=== PATIENT | female | born 1970 | race Caucasian/White ===

== ENCOUNTER → 2018-01-08 07:57 | Outpatient (CLI) | payer MEDICARE, OTHER, SELFPAY ==
[2018-01-08 09:03] LABS: Prograf-FK506 TO CCF/UNIV MAILED SPECIMEN
[2018-01-08 09:15] LABS: Absolute Lymphocyte Count 1.28 X10^3/ul (0.83-4.51); Absolute Neutrophil Count 1.9 X10^3/uL (2.0-7.7); Basophil# 0.07 X10^3/uL; Basophil% 1.7 % (0-1); Eosinophil# 0.33 X10^3/uL; Eosinophils% 8.1 % (0-5); Hematocrit 41.3 % (37-47); Hemoglobin 13.5 g/dl (12.0-15.0); Lymphocyte # 1.28 X10^3/ul (4.0); Lymphocyte % 31.4 % (19-41); Mean Corp Hgb Conc 32.7 g/gl (32-36); Mean Corpuscular Hgb 30.8 pg (27.0-32.0); Mean Corpuscular Volume 94.3 fL (81-99); Mean Platelet Vol. 12.4 fl (6.2-12.0); Monocyte# 0.54 X10^3/uL; Monocyte% 13.2 % (0-10); Neutrophil # 1.85 X10^3/uL (2.7-7.7); Neutrophil % 45.4 % (47-70); Platelet Count 126 K/mm3 (150-450); RBC Distribution Width CV 12.4 % (11.6-14.6); RBC Distribution Width SD 42.4 fl (35.1-43.9); Red Blood Count 4.38 M/mm3 (4.2-5.4); White Blood Count 4.1 K/mm3 (4.4-11.0)
[2018-01-08 09:20] LABS: POSITIVE COUNT NO; POSITIVE DIFFERENTIAL NO; POSITIVE MORPHOLOGY NO
[2018-01-08 09:54] LABS: AST(SGOT) 43 U/L (15-37); Alanine Aminotransfer ALT/SGPT 52 U/L (13-56); Albumin, Serum 3.4 g/dL (3.2-5.0); Alkaline Phosphatase 51 U/L (45-117); Anion Gap 7 (5-15); BUN 13 mg/dL (7-18); BUN/Creat Ratio 15.2 RATIO (10-20); Bilirubin, Direct 0.15 mg/dL (0.00-0.30); Calcium,Total 8.3 mg/dL (8.5-10.1); Chloride 108 mmol/L (98-107); Creatinine, Serum 0.85 mg/dL (0.55-1.02); EST Glomerular Filtration Rate 76 mL/min (>60); Est Glom Filt Rate - Afr Amer 92 mL/min (>60); GGTP 54 U/L (5-55); Globulin 3.8 g/dL (2.2-4.2); Glucose 83 mg/dL (74-106); Potassium 3.8 mmol/L (3.5-5.1); Protein, Total 7.2 g/dL (6.4-8.2); Sodium Level 142 mmol/L (136-145)
== END ==
PROVIDERS: Family Provider Nurse Practitioner; PCP Nurse Practitioner
DX: Z94.4 Liver transplant status (principal)
CPT/HCPCS: 36415; 80048; 80076; 82977; 85025

== ENCOUNTER → 2018-01-28 11:01 | Outpatient (CLI) | payer MEDICARE, OTHER, SELFPAY ==
[2018-01-28 11:45] LABS: Erythrocyte Sedimentation Rate 2 mm/hr (0-20)
[2018-01-31 14:00] LABS: HPV Reflexed? NOT INDICATED
== END ==
PROVIDERS: Family Provider Nurse Practitioner; PCP Nurse Practitioner; Visit Provider Obstetrics & Gynecology
DX: Z12.4 Encounter for screening for malignant neoplasm of cervix (principal); R51 Headache
CPT/HCPCS: 36415; 85652; 88175; G0145

== ENCOUNTER 2018-03-19 08:03 | Outpatient (RCR) | payer OTHER, MEDICARE, SELFPAY ==
[2018-03-06 07:52] LABS: Absolute Lymphocyte Count 1.59 X10^3/ul (0.83-4.51); Absolute Neutrophil Count 2.2 X10^3/uL (2.0-7.7); Basophil# 0.05 X10^3/uL; Basophil% 1.1 % (0-1); Eosinophil# 0.34 X10^3/uL; Eosinophils% 7.2 % (0-5); Hematocrit 42.1 % (37-47); Lymphocyte # 1.59 X10^3/ul (4.0); Lymphocyte % 33.6 % (19-41); Mean Corp Hgb Conc 33.3 g/gl (32-36); Mean Corpuscular Volume 93.3 fL (81-99); Mean Platelet Vol. 11.9 fl (6.2-12.0); Monocyte# 0.55 X10^3/uL; Monocyte% 11.6 % (0-10); Neutrophil % 46.5 % (47-70); Platelet Count 118 K/mm3 (150-450); RBC Distribution Width CV 11.9 % (11.6-14.6); RBC Distribution Width SD 40.3 fl (35.1-43.9); Red Blood Count 4.51 M/mm3 (4.2-5.4); White Blood Count 4.7 K/mm3 (4.4-11.0)
[2018-03-06 08:14] LABS: AST(SGOT) 141 U/L (15-37); Alanine Aminotransfer ALT/SGPT 179 U/L (13-56); Albumin, Serum 3.5 g/dL (3.2-5.0); Alkaline Phosphatase 87 U/L (45-117); Anion Gap 7 (5-15); BUN 17 mg/dL (7-18); BUN/Creat Ratio 16.5 RATIO (10-20); Bilirubin, Direct 0.25 mg/dL (0.00-0.30); Calcium,Total 8.5 mg/dL (8.5-10.1); Chloride 103 mmol/L (98-107); Creatinine, Serum 1.03 mg/dL (0.55-1.02); EST Glomerular Filtration Rate 61 mL/min (>60); Est Glom Filt Rate - Afr Amer 74 mL/min (>60); GGTP 149 U/L (5-55); Glucose 113 mg/dL (74-106); Potassium 3.8 mmol/L (3.5-5.1); Protein, Total 7.5 g/dL (6.4-8.2); Sodium Level 139 mmol/L (136-145)
[2018-03-06 08:19] LABS: POSITIVE COUNT NO; POSITIVE DIFFERENTIAL NO; POSITIVE MORPHOLOGY NO
[2018-03-06 08:23] LABS: Prograf-FK506 TO CCF/UNIV MAILED SPECIMEN
[2018-03-19 09:31] LABS: Absolute Lymphocyte Count 1.39 X10^3/ul (0.83-4.51); Absolute Neutrophil Count 2.3 X10^3/uL (2.0-7.7); Basophil# 0.07 X10^3/uL; Basophil% 1.5 % (0-1); Eosinophil# 0.26 X10^3/uL; Eosinophils% 5.7 % (0-5); Hematocrit 41.3 % (37-47); Lymphocyte # 1.39 X10^3/ul (4.0); Lymphocyte % 30.3 % (19-41); Mean Corp Hgb Conc 33.9 g/gl (32-36); Mean Corpuscular Hgb 31.3 pg (27.0-32.0); Mean Corpuscular Volume 92.4 fL (81-99); Mean Platelet Vol. 12.2 fl (6.2-12.0); Monocyte# 0.58 X10^3/uL; Monocyte% 12.6 % (0-10); Neutrophil # 2.28 X10^3/uL (2.7-7.7); Neutrophil % 49.7 % (47-70); Platelet Count 155 K/mm3 (150-450); RBC Distribution Width CV 12.1 % (11.6-14.6); RBC Distribution Width SD 40.7 fl (35.1-43.9); Red Blood Count 4.47 M/mm3 (4.2-5.4); White Blood Count 4.6 K/mm3 (4.4-11.0)
[2018-03-19 09:32] LABS: POSITIVE COUNT NO; POSITIVE DIFFERENTIAL NO; POSITIVE MORPHOLOGY NO
[2018-03-19 10:01] LABS: AST(SGOT) 118 U/L (15-37); Alanine Aminotransfer ALT/SGPT 132 U/L (13-56); Albumin, Serum 3.2 g/dL (3.2-5.0); Alkaline Phosphatase 71 U/L (45-117); Anion Gap 8 (5-15); BUN 11 mg/dL (7-18); Calcium,Total 8.3 mg/dL (8.5-10.1); Chloride 108 mmol/L (98-107); EST Glomerular Filtration Rate 63 mL/min (>60); Est Glom Filt Rate - Afr Amer 76 mL/min (>60); GGTP 148 U/L (5-55); Globulin 4.2 g/dL (2.2-4.2); Glucose 114 mg/dL (74-106); Potassium 3.8 mmol/L (3.5-5.1); Protein, Total 7.4 g/dL (6.4-8.2); Sodium Level 141 mmol/L (136-145)
[2018-03-28 15:07] LABS: Prograf-FK506 TO CCF/UNIV MAILED SPECIMEN
== END 2018-03-19 09:00 | disposition home or self-care (01) ==
LOC: LAB 08:03
PROVIDERS: Family Provider Nurse Practitioner; PCP Nurse Practitioner
DX: Z94.4 Liver transplant status (principal)
CPT/HCPCS: 36415; 80048; 80076; 80197; 82977; 85025

== ENCOUNTER 2018-03-21 17:48 | Emergency (ER) | payer MEDICARE, OTHER, SELFPAY ==
[2018-03-21 17:53] VITALS: BP 135/89; PULSE 82; RESP 16; TEMP 36.9; O2SAT 98; BMI 25.0
[2018-03-21] MEDS: Ketorolac 30 MG/ML Syringe IV (19:01)
[2018-03-21] MEDS: proMETHazine 25 MG/ML Syringe 12.5 MG IV (19:01)
[2018-03-21] MEDS: 0.9% Normal Saline 1,000 ML 1000 ML IV (19:01)
[2018-03-21] MEDS: DiphenhydrAMINE 50 MG/ML Syringe IV (19:01)
--- NOTE | 2018-03-21 19:06 | ED.DEP ---
ED Disposition - Plan for ED Patient: Disposition: Home or Assisted Living Chief Complaint: Headache Instructions: ED Headache Migraine Referrals: Rosmery Ferrell [Primary Care Provider] - 1-2 Days if not improving Additional Instructions: Plenty of fluids and rest.
[2018-03-21 20:18] VITALS: PULSE 84; RESP 18; O2SAT 98; O2SAT 99
--- NOTE | 2018-03-22 00:17 | ED.DCSUM_ITS ---
- ER Visit Summary Date of Service: 03/22/18 Chief Complaint: Headache with a history of migraines History of Present Illness: The patient is a 48 F history of migraine headaches. Patient states that she awoke today with a headache. Associated nausea and vomiting. No family history of intracranial bleed or aneurysms. She denies any head trauma. No sinus congestion or fever. No neck pain. She is on no blood thinners. She denies any neurological symptoms. Physical Examination: Middle-aged female. Vital signs are stable afebrile. H EENT exam face is atraumatic. Eyes and scalp. Pupils round reactive light. No facial droop. Normal speech. Neck nontender. No meningismus. Able to touch chin to chest. Lungs clear to auscultation bilaterally. Heart regular rate and rhythm no murmur. Abdomen soft nontender. She is moving all 4 extremities. Neurovascular intact. Neurologic exam normal. NIH is 0. GCS of 15. Test Results: None Emergency Department Course and Treatment: Patient was treated with IV fluids, IV Toradol, IV Benadryl and IV Phenergan. Treatment Plan: On repeat exam she is doing well at 1935 feels comfortable being discharged home. Disposition: Discharge Impression: Acute cephalgia with a history of migraines History of liver and renal transplant This note was generated with [employer] dictation software. It may contain incorrect words, spelling, and punctuation that were not noted in review of the chart prior to signing ED Disposition - Plan for ED Patient: Disposition: Home or Assisted Living Chief Complaint: Headache Instructions: ED Headache Migraine Referrals: Rosmery Ferrell [Primary Care Provider] - 1-2 Days if not improving Additional Instructions: Plenty of fluids and rest.
== END 2018-03-21 20:19 | disposition home or self-care (01) ==
PROVIDERS: Emergency Provider Emergency Medicine; Family Provider Nurse Practitioner; PCP Nurse Practitioner
DX: R51 Headache (principal); Z94.4 Liver transplant status; Z94.0 Kidney transplant status; Z79.899 Other long term (current) drug therapy
CPT/HCPCS: 96360; 99283; J7030

== ENCOUNTER 2018-05-06 08:00 | Outpatient (RCR) | payer MEDICARE, OTHER, SELFPAY ==
[2018-05-06 09:03] LABS: Absolute Neutrophil Count 1.6 X10^3/uL (2.0-7.7); Basophil# 0.08 X10^3/uL; Eosinophil# 0.45 X10^3/uL; Eosinophils% 11.2 % (0-5); Hematocrit 42.7 % (37-47); Hemoglobin 13.8 g/dl (12.0-15.0); Lymphocyte % 37.4 % (19-41); Mean Corp Hgb Conc 32.3 g/gl (32-36); Mean Corpuscular Hgb 30.4 pg (27.0-32.0); Mean Corpuscular Volume 94.1 fL (81-99); Mean Platelet Vol. 11.4 fl (6.2-12.0); Monocyte# 0.43 X10^3/uL; Monocyte% 10.7 % (0-10); Neutrophil # 1.55 X10^3/uL (2.7-7.7); Neutrophil % 38.7 % (47-70); POSITIVE COUNT NO; POSITIVE DIFFERENTIAL NO; POSITIVE MORPHOLOGY NO; Platelet Count 129 K/mm3 (150-450); RBC Distribution Width CV 12.1 % (11.6-14.6); RBC Distribution Width SD 40.9 fl (35.1-43.9); Red Blood Count 4.54 M/mm3 (4.2-5.4)
[2018-05-06 09:05] LABS: Prograf-FK506 TO CCF/UNIV MAILED SPECIMEN
[2018-05-06 09:37] LABS: AST(SGOT) 77 U/L (15-37); Alanine Aminotransfer ALT/SGPT 86 U/L (13-56); Albumin, Serum 3.3 g/dL (3.2-5.0); Alkaline Phosphatase 63 U/L (45-117); Anion Gap 5 (5-15); BUN 12 mg/dL (7-18); BUN/Creat Ratio 12.6 RATIO (10-20); Bilirubin, Direct 0.19 mg/dL (0.00-0.30); Calcium,Total 8.5 mg/dL (8.5-10.1); Chloride 107 mmol/L (98-107); Creatinine, Serum 0.95 mg/dL (0.55-1.02); EST Glomerular Filtration Rate 66 mL/min (>60); Est Glom Filt Rate - Afr Amer 80 mL/min (>60); GGTP 115 U/L (5-55); Globulin 4.3 g/dL (2.2-4.2); Glucose 94 mg/dL (74-106); Potassium 3.9 mmol/L (3.5-5.1); Protein, Total 7.6 g/dL (6.4-8.2); Sodium Level 140 mmol/L (136-145)
== END 2018-05-06 09:00 | disposition home or self-care (01) ==
LOC: LAB 08:00
PROVIDERS: Family Provider Nurse Practitioner; PCP Nurse Practitioner
DX: Z94.4 Liver transplant status (principal)
CPT/HCPCS: 36415; 80048; 80076; 82977; 85025

== ENCOUNTER 2018-07-10 07:44 | Outpatient (RCR) | payer OTHER, MEDICARE, SELFPAY ==
[2018-07-10 08:22] LABS: Absolute Lymphocyte Count 1.74 X10^3/ul (0.83-4.51); Absolute Neutrophil Count 1.5 X10^3/uL (2.0-7.7); Basophil# 0.08 X10^3/uL; Basophil% 1.9 % (0-1); Eosinophil# 0.42 X10^3/uL; Eosinophils% 10.1 % (0-5); Hematocrit 38.8 % (37-47); Lymphocyte # 1.74 X10^3/ul (4.0); Lymphocyte % 41.7 % (19-41); Mean Corp Hgb Conc 33.5 g/gl (32-36); Mean Corpuscular Hgb 31.2 pg (27.0-32.0); Monocyte# 0.43 X10^3/uL; Monocyte% 10.3 % (0-10); Platelet Count 134 K/mm3 (150-450); RBC Distribution Width CV 12.6 % (11.6-14.6); RBC Distribution Width SD 42.2 fl (35.1-43.9); Red Blood Count 4.17 M/mm3 (4.2-5.4); White Blood Count 4.2 K/mm3 (4.4-11.0)
[2018-07-10 08:35] LABS: POSITIVE COUNT NO; POSITIVE DIFFERENTIAL NO; POSITIVE MORPHOLOGY NO
[2018-07-10 08:36] LABS: AST(SGOT) 51 U/L (15-37); Alanine Aminotransfer ALT/SGPT 56 U/L (13-56); Albumin, Serum 3.3 g/dL (3.2-5.0); Alkaline Phosphatase 60 U/L (45-117); Anion Gap 9 (5-15); BUN 12 mg/dL (7-18); Calcium,Total 8.7 mg/dL (8.5-10.1); Chloride 108 mmol/L (98-107); Creatinine, Serum 0.92 mg/dL (0.55-1.02); EST Glomerular Filtration Rate 69 mL/min (>60); Est Glom Filt Rate - Afr Amer 83 mL/min (>60); GGTP 70 U/L (5-55); Glucose 112 mg/dL (74-106); Potassium 3.7 mmol/L (3.5-5.1); Protein, Total 7.3 g/dL (6.4-8.2); Sodium Level 143 mmol/L (136-145)
[2018-07-30 15:46] LABS: Prograf-FK506 TO CCF/UNIV MAILED SPECIMEN
== END 2018-07-10 09:00 | disposition home or self-care (01) ==
LOC: LAB 07:44
PROVIDERS: Family Provider Nurse Practitioner; PCP Nurse Practitioner
DX: Z94.4 Liver transplant status (principal)
CPT/HCPCS: 36415; 80048; 80076; 80197; 82977; 85025

== ENCOUNTER 2018-09-07 07:38 | Outpatient (RCR) | payer MEDICARE, OTHER, SELFPAY ==
[2018-09-07 08:42] LABS: Absolute Lymphocyte Count 1.91 X10^3/ul (0.83-4.51); Absolute Neutrophil Count 1.8 X10^3/uL (2.0-7.7); Basophil# 0.05 X10^3/uL; Basophil% 1.1 % (0-1); Eosinophil# 0.21 X10^3/uL; Eosinophils% 4.7 % (0-5); Hematocrit 41.5 % (37-47); Hemoglobin 13.7 g/dl (12.0-15.0); Lymphocyte # 1.91 X10^3/ul (4.0); Lymphocyte % 42.8 % (19-41); Mean Corpuscular Hgb 30.6 pg (27.0-32.0); Mean Corpuscular Volume 92.8 fL (81-99); Mean Platelet Vol. 12.5 fl (6.2-12.0); Monocyte# 0.48 X10^3/uL; Monocyte% 10.8 % (0-10); Neutrophil # 1.81 X10^3/uL (2.7-7.7); Neutrophil % 40.6 % (47-70); Platelet Count 135 K/mm3 (150-450); RBC Distribution Width SD 40.6 fl (35.1-43.9); Red Blood Count 4.47 M/mm3 (4.2-5.4); White Blood Count 4.5 K/mm3 (4.4-11.0)
[2018-09-07 08:43] LABS: POSITIVE COUNT NO; POSITIVE DIFFERENTIAL NO; POSITIVE MORPHOLOGY NO
[2018-09-07 08:45] LABS: Prograf-FK506 TO CCF/UNIV MAILED SPECIMEN
[2018-09-07 09:05] LABS: AST(SGOT) 52 U/L (15-37); Alanine Aminotransfer ALT/SGPT 60 U/L (13-56); Albumin, Serum 3.4 g/dL (3.2-5.0); Alkaline Phosphatase 57 U/L (45-117); Anion Gap 5 (5-15); BUN 16 mg/dL (7-18); BUN/Creat Ratio 16.8 RATIO (10-20); Calcium,Total 8.5 mg/dL (8.5-10.1); Chloride 105 mmol/L (98-107); Creatinine, Serum 0.95 mg/dL (0.55-1.02); EST Glomerular Filtration Rate 66 mL/min (>60); Est Glom Filt Rate - Afr Amer 80 mL/min (>60); GGTP 64 U/L (5-55); Globulin 3.9 g/dL (2.2-4.2); Glucose 86 mg/dL (74-106); Potassium 3.6 mmol/L (3.5-5.1); Protein, Total 7.3 g/dL (6.4-8.2); Sodium Level 139 mmol/L (136-145)
== END 2018-10-04 09:24 | disposition home or self-care (01) ==
LOC: LAB 07:38
PROVIDERS: Family Provider Nurse Practitioner; PCP Nurse Practitioner
DX: Z94.4 Liver transplant status (principal)
CPT/HCPCS: 36415; 80048; 80076; 82977; 85025

== ENCOUNTER 2018-11-18 07:15 | Outpatient (RCR) | payer OTHER, MEDICARE, SELFPAY ==
[2018-10-14 08:47] VITALS: BMI 25.0
[2018-11-18 07:59] LABS: Absolute Lymphocyte Count 1.86 X10^3/ul (0.83-4.51); Absolute Neutrophil Count 1.9 X10^3/uL (2.0-7.7); Basophil# 0.08 X10^3/uL; Basophil% 1.8 % (0-1); Eosinophil# 0.31 X10^3/uL; Eosinophils% 6.9 % (0-5); Hematocrit 44.7 % (37-47); Hemoglobin 14.6 g/dl (12.0-15.0); Lymphocyte # 1.86 X10^3/ul (4.0); Lymphocyte % 41.2 % (19-41); Mean Corp Hgb Conc 32.7 g/gl (32-36); Mean Corpuscular Hgb 30.8 pg (27.0-32.0); Mean Corpuscular Volume 94.3 fL (81-99); Mean Platelet Vol. 12.3 fl (6.2-12.0); Monocyte# 0.38 X10^3/uL; Monocyte% 8.4 % (0-10); Neutrophil # 1.89 X10^3/uL (2.7-7.7); Neutrophil % 41.7 % (47-70); Platelet Count 140 K/mm3 (150-450); RBC Distribution Width CV 12.1 % (11.6-14.6); RBC Distribution Width SD 41.2 fl (35.1-43.9); Red Blood Count 4.74 M/mm3 (4.2-5.4); White Blood Count 4.5 K/mm3 (4.4-11.0)
[2018-11-18 08:02] LABS: POSITIVE COUNT NO; POSITIVE DIFFERENTIAL NO; POSITIVE MORPHOLOGY NO
[2018-11-18 08:23] LABS: Prograf-FK506 TO CCF/UNIV MAILED SPECIMEN
[2018-11-18 08:35] LABS: AST(SGOT) 66 U/L (15-37); Alanine Aminotransfer ALT/SGPT 68 U/L (13-56); Albumin, Serum 3.6 g/dL (3.2-5.0); Alkaline Phosphatase 82 U/L (45-117); Anion Gap 10 (5-15); BUN 19 mg/dL (7-18); BUN/Creat Ratio 18.8 RATIO (10-20); Bilirubin, Direct 0.19 mg/dL (0.00-0.30); Calcium,Total 8.5 mg/dL (8.5-10.1); Chloride 105 mmol/L (98-107); Creatinine, Serum 1.01 mg/dL (0.55-1.02); EST Glomerular Filtration Rate 62 mL/min (>60); Est Glom Filt Rate - Afr Amer 75 mL/min (>60); GGTP 79 U/L (5-55); Glucose 117 mg/dL (74-106); Potassium 3.9 mmol/L (3.5-5.1); Protein, Total 7.6 g/dL (6.4-8.2); Sodium Level 141 mmol/L (136-145)
== END 2018-11-18 08:00 | disposition home or self-care (01) ==
LOC: LAB 07:15
PROVIDERS: Family Provider Nurse Practitioner; PCP Nurse Practitioner
DX: Z94.4 Liver transplant status (principal)
CPT/HCPCS: 36415; 80048; 80076; 82977; 85025

== ENCOUNTER 2019-01-07 07:34 | Outpatient (RCR) | payer MEDICARE, OTHER, SELFPAY ==
[2018-10-14 08:47] VITALS: BMI 25.0
[2019-01-07 08:55] LABS: Absolute Lymphocyte Count 1.55 X10^3/ul (0.83-4.51); Absolute Neutrophil Count 2.1 X10^3/uL (2.0-7.7); Basophil# 0.07 X10^3/uL; Basophil% 1.6 % (0-1); Eosinophil# 0.28 X10^3/uL; Eosinophils% 6.4 % (0-5); Hematocrit 41.7 % (37-47); Hemoglobin 13.4 g/dl (12.0-15.0); Lymphocyte # 1.55 X10^3/ul (4.0); Lymphocyte % 35.5 % (19-41); Mean Corp Hgb Conc 32.1 g/gl (32-36); Mean Corpuscular Hgb 30.5 pg (27.0-32.0); Mean Platelet Vol. 12.6 fl (6.2-12.0); Monocyte# 0.41 X10^3/uL; Monocyte% 9.4 % (0-10); Neutrophil # 2.06 X10^3/uL (2.7-7.7); Neutrophil % 47.1 % (47-70); Platelet Count 140 K/mm3 (150-450); RBC Distribution Width CV 12.8 % (11.6-14.6); RBC Distribution Width SD 43.8 fl (35.1-43.9); Red Blood Count 4.39 M/mm3 (4.2-5.4); White Blood Count 4.4 K/mm3 (4.4-11.0)
[2019-01-07 08:57] LABS: POSITIVE COUNT NO; POSITIVE DIFFERENTIAL NO; POSITIVE MORPHOLOGY NO
[2019-01-07 09:27] LABS: AST(SGOT) 65 U/L (15-37); Alanine Aminotransfer ALT/SGPT 81 U/L (13-56); Albumin, Serum 3.4 g/dL (3.2-5.0); Alkaline Phosphatase 76 U/L (45-117); Anion Gap 11 (5-15); BUN 14 mg/dL (7-18); BUN/Creat Ratio 15.9 RATIO (10-20); Bilirubin, Direct 0.23 mg/dL (0.00-0.30); Calcium,Total 8.4 mg/dL (8.5-10.1); Chloride 106 mmol/L (98-107); Creatinine, Serum 0.88 mg/dL (0.55-1.02); EST Glomerular Filtration Rate 73 mL/min (>60); Est Glom Filt Rate - Afr Amer 88 mL/min (>60); GGTP 82 U/L (5-55); Globulin 3.8 g/dL (2.2-4.2); Glucose 98 mg/dL (74-106); Potassium 3.4 mmol/L (3.5-5.1); Protein, Total 7.2 g/dL (6.4-8.2); Sodium Level 142 mmol/L (136-145)
== END 2019-01-07 08:34 | disposition home or self-care (01) ==
LOC: LAB 07:34
PROVIDERS: Family Provider Nurse Practitioner; PCP Nurse Practitioner
DX: Z94.4 Liver transplant status (principal)
CPT/HCPCS: 36415; 80048; 80076; 82977; 85025

== ENCOUNTER → 2019-02-20 | Outpatient (CLI) | payer MEDICARE, SELFPAY ==
[2018-10-14 08:47] VITALS: BMI 25.0
--- NOTE | 2019-02-20 08:32 | BI_ITS ---
MAMMOGRAPHY - BILATERAL SCREENING REASON FOR EXAM: Female, 49 years old. Routine annual screening examination. PERTINENT HISTORY: Non-contributory. TECHNIQUE: Digital bilateral breast gurinder (3D mammographic acquisition) in the CC and MLO projections. 2-D mediolateral oblique (MLO) and craniocaudad (CC) views of both breasts were obtained. CAD: Full Field Digital Mammography with Computer Added Detection was performed. COMPARISON: Comparison is made with prior study dated October 05, 2017 and October 04, 2016. FINDINGS: Breast Composition: There are scattered areas of fibroglandular density. There are no dominant masses or suspicious calcifications. Stable small left axillary lymph nodes. No other significant abnormalities are identified. There has been no significant change since the prior study. BI/SCREENING MAMM (CAD), BILAT IMPRESSION: Stable bilateral screening mammogram. Yearly follow-up mammogram recommended. (A) ASSESSMENT CATEGORY: BIRADS Category 2: Benign. A letter regarding these results will be sent to the patient by the facility within 30 days. Approximately 10% of breast cancers are not detected by mammography. A normal mammogram should not delay biopsy of a clinically suspicious abnormality. [id number] Electronically Signed: Rajeev Cortez, at 10:16 EDT , Service support ,
== END | disposition home or self-care (01) ==
LOC: OPBI 08:30
PROVIDERS: Family Provider Nurse Practitioner; PCP Nurse Practitioner; Referring Provider Obstetrics & Gynecology; Visit Provider Obstetrics & Gynecology
DX: Z12.31 Encounter for screening mammogram for malignant neoplasm of breast (principal)
CPT/HCPCS: 77063; 77067

== ENCOUNTER 2019-03-11 07:26 | Outpatient (RCR) | payer MEDICARE, OTHER, SELFPAY ==
[2018-10-14 08:47] VITALS: BMI 25.0
[2019-03-11 08:32] LABS: Prograf-FK506 TO CCF/UNIV MAILED SPECIMEN
[2019-03-11 08:37] LABS: Absolute Lymphocyte Count 1.43 X10^3/ul (0.83-4.51); Absolute Neutrophil Count 1.4 X10^3/uL (2.0-7.7); Basophil# 0.08 X10^3/uL; Basophil% 2.3 % (0-1); Eosinophil# 0.32 X10^3/uL; Hematocrit 43.1 % (37-47); Hemoglobin 14.2 g/dl (12.0-15.0); Lymphocyte # 1.43 X10^3/ul (4.0); Lymphocyte % 40.4 % (19-41); Mean Corp Hgb Conc 32.9 g/gl (32-36); Mean Corpuscular Hgb 30.7 pg (27.0-32.0); Mean Corpuscular Volume 93.3 fL (81-99); Monocyte# 0.33 X10^3/uL; Monocyte% 9.3 % (0-10); Neutrophil # 1.38 X10^3/uL (2.7-7.7); Platelet Count 135 K/mm3 (150-450); RBC Distribution Width CV 11.9 % (11.6-14.6); Red Blood Count 4.62 M/mm3 (4.2-5.4); White Blood Count 3.5 K/mm3 (4.4-11.0)
[2019-03-11 08:38] LABS: POSITIVE COUNT NO; POSITIVE DIFFERENTIAL NO; POSITIVE MORPHOLOGY NO
[2019-03-11 08:59] LABS: AST(SGOT) 104 U/L (15-37); Alanine Aminotransfer ALT/SGPT 125 U/L (13-56); Albumin, Serum 3.7 g/dL (3.2-5.0); Alkaline Phosphatase 85 U/L (45-117); Anion Gap 1 (5-15); BUN 19 mg/dL (7-18); BUN/Creat Ratio 21.3 RATIO (10-20); Bilirubin, Direct 0.19 mg/dL (0.00-0.30); Calcium,Total 8.5 mg/dL (8.5-10.1); Chloride 109 mmol/L (98-107); Creatinine, Serum 0.89 mg/dL (0.55-1.02); EST Glomerular Filtration Rate 71 mL/min (>60); Est Glom Filt Rate - Afr Amer 86 mL/min (>60); GGTP 91 U/L (5-55); Glucose 94 mg/dL (74-106); Protein, Total 7.7 g/dL (6.4-8.2); Sodium Level 140 mmol/L (136-145)
== END 2019-03-11 08:26 | disposition home or self-care (01) ==
LOC: LAB 07:26
PROVIDERS: Family Provider Nurse Practitioner; PCP Nurse Practitioner
DX: Z94.4 Liver transplant status (principal)
CPT/HCPCS: 36415; 80048; 80076; 82977; 85025

== ENCOUNTER 2019-04-23 07:05 | Outpatient (RCR) | payer MEDICARE, OTHER, SELFPAY ==
[2018-10-14 08:47] VITALS: BMI 25.0
[2019-04-23 07:36] LABS: Absolute Lymphocyte Count 1.51 X10^3/ul (0.83-4.51); Absolute Neutrophil Count 1.5 X10^3/uL (2.0-7.7); Basophil# 0.08 X10^3/uL; Eosinophil# 0.36 X10^3/uL; Eosinophils% 8.9 % (0-5); Hemoglobin 14.1 g/dl (12.0-15.0); Lymphocyte # 1.51 X10^3/ul (4.0); Lymphocyte % 37.3 % (19-41); Mean Corp Hgb Conc 32.8 g/gl (32-36); Mean Corpuscular Hgb 30.6 pg (27.0-32.0); Mean Corpuscular Volume 93.3 fL (81-99); Mean Platelet Vol. 10.9 fl (6.2-12.0); Monocyte# 0.57 X10^3/uL; Monocyte% 14.1 % (0-10); Neutrophil # 1.52 X10^3/uL (2.7-7.7); Neutrophil % 37.5 % (47-70); Platelet Count 138 K/mm3 (150-450); RBC Distribution Width CV 12.2 % (11.6-14.6); RBC Distribution Width SD 41.1 fl (35.1-43.9); Red Blood Count 4.61 M/mm3 (4.2-5.4); White Blood Count 4.1 K/mm3 (4.4-11.0)
[2019-04-23 07:39] LABS: POSITIVE COUNT NO; POSITIVE DIFFERENTIAL NO; POSITIVE MORPHOLOGY NO
[2019-04-23 08:09] LABS: AST(SGOT) 113 U/L (15-37); Alanine Aminotransfer ALT/SGPT 124 U/L (13-56); Albumin, Serum 3.4 g/dL (3.2-5.0); Alkaline Phosphatase 75 U/L (45-117); Anion Gap 6 (5-15); BUN 20 mg/dL (7-18); BUN/Creat Ratio 21.4 RATIO (10-20); Bilirubin, Direct 0.22 mg/dL (0.00-0.30); Calcium,Total 8.7 mg/dL (8.5-10.1); Chloride 106 mmol/L (98-107); Creatinine, Serum 0.93 mg/dL (0.55-1.02); EST Glomerular Filtration Rate 68 mL/min (>60); Est Glom Filt Rate - Afr Amer 82 mL/min (>60); GGTP 104 U/L (5-55); Globulin 4.3 g/dL (2.2-4.2); Glucose 94 mg/dL (74-106); Potassium 4.3 mmol/L (3.5-5.1); Protein, Total 7.7 g/dL (6.4-8.2); Sodium Level 141 mmol/L (136-145)
[2019-04-23 08:20] LABS: Prograf-FK506 TO CCF/UNIV MAILED SPECIMEN
== END 2019-04-23 08:00 | disposition home or self-care (01) ==
LOC: LAB 07:05
PROVIDERS: Family Provider Nurse Practitioner; PCP Nurse Practitioner
DX: Z94.4 Liver transplant status (principal)
CPT/HCPCS: 36415; 80048; 80076; 82977; 85025

== ENCOUNTER 2019-05-15 07:37 | Outpatient (RCR) | payer MEDICARE, SELFPAY ==
[2018-10-14 08:47] VITALS: BMI 25.0
[2019-05-15 08:37] LABS: Absolute Lymphocyte Count 1.38 X10^3/ul (0.83-4.51); Absolute Neutrophil Count 1.2 X10^3/uL (2.0-7.7); Basophil# 0.04 X10^3/uL; Basophil% 1.2 % (0-1); Eosinophil# 0.23 X10^3/uL; Hemoglobin 13.2 g/dl (12.0-15.0); Lymphocyte # 1.38 X10^3/ul (4.0); Lymphocyte % 41.9 % (19-41); Mean Corpuscular Hgb 30.6 pg (27.0-32.0); Mean Corpuscular Volume 92.6 fL (81-99); Mean Platelet Vol. 11.9 fl (6.2-12.0); Monocyte# 0.47 X10^3/uL; Monocyte% 14.3 % (0-10); Neutrophil # 1.17 X10^3/uL (2.7-7.7); Neutrophil % 35.6 % (47-70); Platelet Count 128 K/mm3 (150-450); RBC Distribution Width CV 12.3 % (11.6-14.6); RBC Distribution Width SD 40.9 fl (35.1-43.9); Red Blood Count 4.32 M/mm3 (4.2-5.4); White Blood Count 3.3 K/mm3 (4.4-11.0)
[2019-05-15 08:41] LABS: Prograf-FK506 TO CCF/UNIV MAILED SPECIMEN
[2019-05-15 08:48] LABS: POSITIVE COUNT NO; POSITIVE DIFFERENTIAL NO; POSITIVE MORPHOLOGY NO
[2019-05-15 08:50] LABS: AST(SGOT) 74 U/L (15-37); Alanine Aminotransfer ALT/SGPT 87 U/L (13-56); Albumin, Serum 3.3 g/dL (3.2-5.0); Alkaline Phosphatase 58 U/L (45-117); Anion Gap 5 (5-15); BUN 16 mg/dL (7-18); BUN/Creat Ratio 18.5 RATIO (10-20); Bilirubin, Direct 0.15 mg/dL (0.00-0.30); Calcium,Total 8.4 mg/dL (8.5-10.1); Chloride 109 mmol/L (98-107); Creatinine, Serum 0.86 mg/dL (0.55-1.02); EST Glomerular Filtration Rate 74 mL/min (>60); Est Glom Filt Rate - Afr Amer 90 mL/min (>60); GGTP 75 U/L (5-55); Globulin 4.1 g/dL (2.2-4.2); Glucose 94 mg/dL (74-106); Potassium 4.1 mmol/L (3.5-5.1); Protein, Total 7.4 g/dL (6.4-8.2); Sodium Level 141 mmol/L (136-145)
== END 2019-05-15 16:21 ==
LOC: LAB 07:37
PROVIDERS: Family Provider Nurse Practitioner; PCP Nurse Practitioner
DX: Z94.4 Liver transplant status (principal)
CPT/HCPCS: 36415; 80048; 80076; 82977; 85025

== ENCOUNTER 2019-07-11 07:39 | Outpatient (RCR) | payer MEDICARE, OTHER, SELFPAY ==
[2018-10-14 08:47] VITALS: BMI 25.0
[2019-07-11 08:28] LABS: Absolute Lymphocyte Count 1.99 X10^3/uL (0.83-4.51); Absolute Neutrophil Count 1.7 X10^3/uL (2.0-7.7); Basophil# 0.08 X10^3/uL; Basophil% 1.8 % (0-1); Eosinophil# 0.33 X10^3/uL; Eosinophils% 7.2 % (0-5); Hematocrit 43.8 % (37-47); Hemoglobin 14.6 g/dL (12.0-15.0); Lymphocyte # 1.99 X10^3/ul (4.0); Lymphocyte % 43.5 % (19-41); Mean Corp Hgb Conc 33.3 g/dL (32-36); Mean Corpuscular Hgb 31.5 pg (27.0-32.0); Mean Corpuscular Volume 94.4 fL (81-99); Mean Platelet Vol. 12.1 fl (6.2-12.0); Monocyte# 0.49 X10^3/uL; Monocyte% 10.7 % (0-10); NRBC Flagged by Analyzer 0 % (0-5); Neutrophil # 1.67 X10^3/uL (2.7-7.7); Neutrophil % 36.6 % (47-70); Platelet Count 135 K/mm3 (150-450); RBC Distribution Width CV 11.7 % (11.6-14.6); RBC Distribution Width SD 40.5 fl (35.1-43.9); Red Blood Count 4.64 M/mm3 (4.2-5.4); White Blood Count 4.6 K/mm3 (4.4-11.0)
[2019-07-11 08:45] LABS: Prograf-FK506 TO CCF/UNIV MAILED SPECIMEN
[2019-07-11 09:02] LABS: AST(SGOT) 62 U/L (15-37); Alanine Aminotransfer ALT/SGPT 69 U/L (13-56); Albumin, Serum 3.4 g/dL (3.2-5.0); Alkaline Phosphatase 69 U/L (45-117); Anion Gap 7 (5-15); BUN 13 mg/dL (7-18); BUN/Creat Ratio 13.5 RATIO (10-20); Bilirubin, Direct 0.19 mg/dL (0.00-0.30); Calcium,Total 8.5 mg/dL (8.5-10.1); Chloride 107 mmol/L (98-107); Creatinine, Serum 0.97 mg/dL (0.55-1.02); EST Glomerular Filtration Rate 65 mL/min (>60); Est Glom Filt Rate - Afr Amer 79 mL/min (>60); GGTP 59 U/L (5-55); Globulin 4.2 g/dL (2.2-4.2); Glucose 89 mg/dL (74-106); Potassium 4.3 mmol/L (3.5-5.1); Protein, Total 7.6 g/dL (6.4-8.2); Sodium Level 142 mmol/L (136-145)
== END 2019-07-11 11:00 | disposition home or self-care (01) ==
LOC: LAB 07:39
PROVIDERS: Family Provider Nurse Practitioner; PCP Nurse Practitioner
DX: Z94.4 Liver transplant status (principal)
CPT/HCPCS: 36415; 80048; 80076; 82977; 85025

== ENCOUNTER 2019-09-19 07:08 | Outpatient (RCR) | payer MEDICARE, OTHER, SELFPAY ==
[2018-10-14 08:47] VITALS: BMI 25.0
[2019-09-19 08:02] LABS: Absolute Lymphocyte Count 2.12 X10^3/uL (0.83-4.51); Basophil# 0.07 X10^3/uL; Basophil% 1.4 % (0-1); Eosinophil# 0.32 X10^3/uL; Eosinophils% 6.3 % (0-5); Hematocrit 45.8 % (37-47); Lymphocyte # 2.12 X10^3/ul (4.0); Lymphocyte % 41.7 % (19-41); Mean Corp Hgb Conc 32.8 g/dL (32-36); Mean Corpuscular Hgb 31.1 pg (27.0-32.0); Mean Corpuscular Volume 94.8 fL (81-99); Mean Platelet Vol. 12.1 fl (6.2-12.0); Monocyte# 0.59 X10^3/uL; Monocyte% 11.6 % (0-10); NRBC Flagged by Analyzer 0 % (0-5); Neutrophil # 1.97 X10^3/uL (2.7-7.7); Neutrophil % 38.8 % (47-70); Platelet Count 136 K/mm3 (150-450); RBC Distribution Width CV 11.9 % (11.6-14.6); RBC Distribution Width SD 40.7 fl (35.1-43.9); Red Blood Count 4.83 M/mm3 (4.2-5.4); White Blood Count 5.1 K/mm3 (4.4-11.0)
[2019-09-19 08:15] LABS: Prograf-FK506 TO CCF/UNIV MAILED SPECIMEN
[2019-09-19 08:28] LABS: AST(SGOT) 56 U/L (15-37); Alanine Aminotransfer ALT/SGPT 67 U/L (13-56); Albumin, Serum 3.5 g/dL (3.2-5.0); Alkaline Phosphatase 76 U/L (45-117); Anion Gap 6 (5-15); BUN 21 mg/dL (7-18); BUN/Creat Ratio 20.6 RATIO (10-20); Calcium,Total 8.7 mg/dL (8.5-10.1); Chloride 105 mmol/L (98-107); Creatinine, Serum 1.02 mg/dL (0.55-1.02); EST Glomerular Filtration Rate 61 mL/min (>60); Est Glom Filt Rate - Afr Amer 74 mL/min (>60); GGTP 65 U/L (5-55); Globulin 4.3 g/dL (2.2-4.2); Glucose 86 mg/dL (74-106); Potassium 3.8 mmol/L (3.5-5.1); Protein, Total 7.8 g/dL (6.4-8.2); Sodium Level 141 mmol/L (136-145)
== END 2019-09-19 18:00 | disposition home or self-care (01) ==
LOC: LAB 07:08
PROVIDERS: Family Provider Nurse Practitioner; PCP Nurse Practitioner
DX: Z94.4 Liver transplant status (principal)
CPT/HCPCS: 36415; 80048; 80076; 82977; 85025

== ENCOUNTER 2019-11-13 07:40 | Outpatient (RCR) | payer MEDICARE, OTHER, SELFPAY ==
[2018-10-14 08:47] VITALS: BMI 25.0
[2019-11-13 08:27] LABS: Absolute Lymphocyte Count 2.39 X10^3/uL (0.83-4.51); Absolute Neutrophil Count 1.6 X10^3/uL (2.0-7.7); Basophil# 0.04 X10^3/uL; Basophil% 0.9 % (0-1); Eosinophil# 0.18 X10^3/uL; Eosinophils% 3.9 % (0-5); Hematocrit 41.9 % (37-47); Lymphocyte # 2.39 X10^3/ul (4.0); Lymphocyte % 52.1 % (19-41); Mean Corp Hgb Conc 33.4 g/dL (32-36); Mean Corpuscular Hgb 30.8 pg (27.0-32.0); Mean Corpuscular Volume 92.3 fL (81-99); Mean Platelet Vol. 11.8 fl (6.2-12.0); Monocyte# 0.41 X10^3/uL; Monocyte% 8.9 % (0-10); NRBC Flagged by Analyzer 0 % (0-5); Neutrophil # 1.57 X10^3/uL (2.7-7.7); Neutrophil % 34.2 % (47-70); Platelet Count 148 K/mm3 (150-450); RBC Distribution Width CV 11.7 % (11.6-14.6); RBC Distribution Width SD 39.2 fl (35.1-43.9); Red Blood Count 4.54 M/mm3 (4.2-5.4); White Blood Count 4.6 K/mm3 (4.4-11.0)
[2019-11-13 08:36] LABS: AST(SGOT) 41 U/L (15-37); Alanine Aminotransfer ALT/SGPT 51 U/L (13-56); Albumin, Serum 3.6 g/dL (3.2-5.0); Alkaline Phosphatase 71 U/L (45-117); Anion Gap 4 (5-15); BUN 16 mg/dL (7-18); BUN/Creat Ratio 15.4 RATIO (10-20); Calcium,Total 9.1 mg/dL (8.5-10.1); Chloride 107 mmol/L (98-107); Creatinine, Serum 1.04 mg/dL (0.55-1.02); EST Glomerular Filtration Rate 60 mL/min (>60); Est Glom Filt Rate - Afr Amer 72 mL/min (>60); GGTP 56 U/L (5-55); Globulin 3.9 g/dL (2.2-4.2); Glucose 109 mg/dL (74-106); Potassium 3.9 mmol/L (3.5-5.1); Protein, Total 7.5 g/dL (6.4-8.2); Sodium Level 141 mmol/L (136-145)
[2019-11-13 08:49] LABS: Prograf-FK506 TO CCF/UNIV MAILED SPECIMEN
== END 2019-11-13 18:00 | disposition home or self-care (01) ==
LOC: LAB 07:40
PROVIDERS: Family Provider Nurse Practitioner; PCP Nurse Practitioner
DX: Z94.4 Liver transplant status (principal)
CPT/HCPCS: 36415; 80048; 80076; 82977; 85025

== ENCOUNTER 2020-01-17 07:10 | Outpatient (RCR) | payer MEDICARE, OTHER, SELFPAY ==
[2018-10-14 08:47] VITALS: BMI 25.0
[2020-01-17 08:14] LABS: Prograf-FK506 TO CCF/UNIV MAILED SPECIMEN
[2020-01-17 08:20] LABS: Absolute Lymphocyte Count 2.38 X10^3/uL (0.83-4.51); Absolute Neutrophil Count 1.5 X10^3/uL (2.0-7.7); Basophil# 0.05 X10^3/uL; Basophil% 1.1 % (0-1); Eosinophils% 6.4 % (0-5); Hematocrit 38.7 % (37-47); Lymphocyte # 2.38 X10^3/ul (4.0); Lymphocyte % 50.4 % (19-41); Mean Corp Hgb Conc 33.6 g/dL (32-36); Mean Corpuscular Hgb 30.7 pg (27.0-32.0); Mean Corpuscular Volume 91.3 fL (81-99); Monocyte# 0.48 X10^3/uL; Monocyte% 10.2 % (0-10); NRBC Flagged by Analyzer 0 % (0-5); Neutrophil # 1.51 X10^3/uL (2.7-7.7); Neutrophil % 31.9 % (47-70); Platelet Count 115 K/mm3 (150-450); RBC Distribution Width CV 12.3 % (11.6-14.6); RBC Distribution Width SD 40.6 fl (35.1-43.9); Red Blood Count 4.24 M/mm3 (4.2-5.4); White Blood Count 4.7 K/mm3 (4.4-11.0)
[2020-01-17 08:51] LABS: AST(SGOT) 42 U/L (15-37); Alanine Aminotransfer ALT/SGPT 46 U/L (13-56); Albumin, Serum 3.5 g/dL (3.2-5.0); Alkaline Phosphatase 67 U/L (45-117); Anion Gap 5 (5-15); BUN 21 mg/dL (7-18); BUN/Creat Ratio 21.2 RATIO (10-20); Bilirubin, Direct 0.16 mg/dL (0.00-0.30); Calcium,Total 8.7 mg/dL (8.5-10.1); Chloride 109 mmol/L (98-107); Creatinine, Serum 0.99 mg/dL (0.55-1.02); EST Glomerular Filtration Rate 63 mL/min (>60); Est Glom Filt Rate - Afr Amer 76 mL/min (>60); GGTP 40 U/L (5-55); Globulin 3.5 g/dL (2.2-4.2); Glucose 98 mg/dL (74-106); Potassium 3.7 mmol/L (3.5-5.1); Sodium Level 142 mmol/L (136-145)
== END 2020-01-17 18:00 | disposition home or self-care (01) ==
LOC: LAB 07:10
PROVIDERS: Family Provider Nurse Practitioner; PCP Nurse Practitioner
DX: Z94.4 Liver transplant status (principal)
CPT/HCPCS: 36415; 80048; 80076; 82977; 85025

== ENCOUNTER → 2020-03-10 | Outpatient (CLI) | payer MEDICARE, OTHER, SELFPAY ==
[2018-10-14 08:47] VITALS: BMI 25.0
[2020-03-13 03:06] LABS: Age Gdln ACOG Testing 30-65 (.)
[2020-03-13 03:24] LABS: HPV APTIMA, High Risk Negative (Negative)
[2020-03-15 16:15] LABS: HPV Reflexed? YES, CHARGE PATIENT
== END | disposition home or self-care (01) ==
LOC: LABSPEC 13:34
PROVIDERS: PCP Nurse Practitioner; Referring Provider Obstetrics & Gynecology; Visit Provider Obstetrics & Gynecology
DX: Z12.4 Encounter for screening for malignant neoplasm of cervix (principal)
CPT/HCPCS: 87624; 88175; G0145

== ENCOUNTER → 2020-03-16 | Outpatient (CLI) | payer MEDICARE, OTHER, SELFPAY ==
[2018-10-14 08:47] VITALS: BMI 25.0
--- NOTE | 2020-03-16 10:32 | BI_ITS ---
MAMMOGRAPHY - BILATERAL SCREENING REASON FOR EXAM: Female, 50 years old. Routine annual screening examination. PERTINENT HISTORY: Non-contributory. TECHNIQUE: Digital bilateral breast dalia (3D mammographic acquisition) in the CC and MLO projections. 2-D mediolateral oblique (MLO) and craniocaudad (CC) views of both breasts were obtained. CAD: Full Field Digital Mammography with Computer Added Detection was performed. COMPARISON: Comparison is made with prior examination dated February 20, 2019 and October 05, 2017. FINDINGS: Breast Composition: There are scattered areas of fibroglandular density. There are no dominant masses or suspicious calcifications. No other significant abnormalities are identified. There has been no significant change since the prior study. BI/SCREEN MAMM (CAD) W/DALIA BILAT IMPRESSION: Stable bilateral screening mammogram. Yearly follow-up mammogram recommended. (A) ASSESSMENT CATEGORY: BIRADS Category 1: Negative. A letter regarding these results will be sent to the patient by the facility within 30 days. Approximately 10% of breast cancers are not detected by mammography. A normal mammogram should not delay biopsy of a clinically suspicious abnormality. [id number] Electronically Signed: Rajeev Cortez, at 11:14 EDT , Service support ,
== END | disposition home or self-care (01) ==
LOC: OPBI 10:30
PROVIDERS: PCP Nurse Practitioner; Referring Provider Obstetrics & Gynecology; Visit Provider Obstetrics & Gynecology
DX: Z12.31 Encounter for screening mammogram for malignant neoplasm of breast (principal)
CPT/HCPCS: 77063; 77067

== ENCOUNTER 2020-04-10 06:55 | Outpatient (RCR) | payer MEDICARE, OTHER, SELFPAY ==
[2018-10-14 08:47] VITALS: BMI 25.0
[2020-04-10 08:00] LABS: Absolute Lymphocyte Count 1.87 X10^3/uL (0.83-4.51); Absolute Neutrophil Count 1.6 X10^3/uL (2.0-7.7); Basophil# 0.06 X10^3/uL; Basophil% 1.4 % (0-1); Eosinophil# 0.22 X10^3/uL; Eosinophils% 5.2 % (0-5); Hemoglobin 13.9 g/dL (12.0-15.0); Lymphocyte # 1.87 X10^3/ul (4.0); Lymphocyte % 43.9 % (19-41); Mean Corp Hgb Conc 33.1 g/dL (32-36); Mean Corpuscular Hgb 31.1 pg (27.0-32.0); Mean Platelet Vol. 11.5 fl (6.2-12.0); Monocyte# 0.47 X10^3/uL; NRBC Flagged by Analyzer 0 % (0-5); Neutrophil # 1.64 X10^3/uL (2.7-7.7); Neutrophil % 38.5 % (47-70); Platelet Count 130 K/mm3 (150-450); RBC Distribution Width CV 11.6 % (11.6-14.6); RBC Distribution Width SD 39.2 fl (35.1-43.9); Red Blood Count 4.47 M/mm3 (4.2-5.4); White Blood Count 4.3 K/mm3 (4.4-11.0)
[2020-04-10 08:18] LABS: AST(SGOT) 40 U/L (15-37); Alanine Aminotransfer ALT/SGPT 45 U/L (13-56); Albumin, Serum 3.7 g/dL (3.2-5.0); Alkaline Phosphatase 65 U/L (45-117); Anion Gap 7 (5-15); BUN 21 mg/dL (7-18); BUN/Creat Ratio 20.2 RATIO (10-20); Bilirubin, Direct 0.19 mg/dL (0.00-0.30); Calcium,Total 8.9 mg/dL (8.5-10.1); Chloride 107 mmol/L (98-107); Creatinine, Serum 1.04 mg/dL (0.55-1.02); EST Glomerular Filtration Rate 60 mL/min (>60); Est Glom Filt Rate - Afr Amer 72 mL/min (>60); GGTP 44 U/L (5-55); Globulin 3.8 g/dL (2.2-4.2); Glucose 93 mg/dL (74-106); Protein, Total 7.5 g/dL (6.4-8.2); Sodium Level 142 mmol/L (136-145)
[2020-04-10 08:26] LABS: Prograf-FK506 TO CCF/UNIV MAILED SPECIMEN
[2020-04-12 09:41] LABS: Vitamin D,25 Hydroxy 54.6 ng/mL
== END 2020-04-10 18:00 | disposition home or self-care (01) ==
LOC: LAB 06:55
PROVIDERS: Family Provider Nurse Practitioner; PCP Nurse Practitioner
DX: Z94.4 Liver transplant status (principal); E55.9 Vitamin D deficiency, unspecified
CPT/HCPCS: 36415; 80048; 80076; 82306; 82977; 85025

== ENCOUNTER 2020-10-23 18:48 | Emergency (ER) | payer MEDICARE, OTHER, SELFPAY ==
[2018-10-14 08:47] VITALS: BMI 25.0
[2020-10-23 18:49] VITALS: BP 158/91; PULSE 91; RESP 18; TEMP 36.6; O2SAT 98; BMI 26.1
--- NOTE | 2020-10-23 19:03 | ED.VISSUMM ---
- ER Visit Summary Date of Service: 10/23/20 Chief Complaint: [Cat bite] History of Present Illness: The patient is a 50 F [presents to the emergency department with a cat bite to the right ankle that occurred yesterday approximately 4:30 AM. Patient states that there was another cat at their window and her cat got agitated and bit her on the right ankle. Cat is known and is immunized. Patient unsure of her last tetanus shot. Patient noticed increased swelling and redness today. She denies any fevers. Patient does have history of prior liver and kidney transplant due to cirrhosis of the liver.] Physical Examination: [HEENT-PERRLA, EOMI. Cranial nerves II through XII grossly intact. TMs clear. Mucous membranes moist. No adenopathy. Cardiovascular-regular rate and rhythm without murmur or ectopy Lungs-clear to auscultation, chest wall stable without crepitus or subcu emphysema Abdomen-normoactive bowel sounds, soft, nontender, no rebound or rigidity, no peritoneal signs. Extremities-intact ?4, normal range of motion, normal pulses. Right ankle-patient does have soft tissue swelling over the lateral malleolus and lateral aspect of the ankle with surrounding erythema. She is got a small puncture wound over the lateral malleolus. Lymphangitic streaking noted. She is neurovascular intact distally.] Test Results: [None indicated] Emergency Department Course and Treatment: [Patient was started on clindamycin and doxycycline given that she has a allergy to Augmentin. Patient does not know what the allergy to Augmentin is.] Treatment Plan: [Patient will be treated with clindamycin and doxycycline. Patient advised to follow-up with primary care physician in 2 to 3 days for wound check. She is to return if increasing pain, redness, fever, or condition should worsen anyway.] Disposition: [Discharged home in stable condition] Impression: [Infected cat bite right ankle Cellulitis right ankle] This note was generated with [employer] dictation software. It may contain incorrect words, spelling, and punctuation that were not noted in review of the chart prior to signing ED Disposition - Plan for ED Patient: Referrals: Rosmery Ferrell SECURITY PROJECT MANAGER, SECURITY PROJECT MANAGER-C [Primary Care Provider] -
--- NOTE | 2020-10-23 19:05 | ED.DEP ---
ED Disposition - Plan for ED Patient: Instructions: ED Cat Bite Prescriptions: Clindamycin HCl [Cleocin] 300 mg PO Q6H #40 cap Prescription Printed Doxycycline 100 mg PO BID #20 cap Prescription Printed Referrals: Rosmery Ferrell NP, HEARING INSTRUMENT SPECIALIST-C [Primary Care Provider] - 2 Days
[2020-10-23] MEDS: Clindamycin HCl 150 MG Capsule 300 MG PO (19:11)
[2020-10-23] MEDS: Doxycycline 100 MG CAPSULE PO (19:12)
[2020-10-23] MEDS: Diphth,Pertuss(Acell),Tet Vac 0.5 ML Vial IM (19:12)
[2020-10-23 19:17] VITALS: RESP 16
== END 2020-10-23 19:31 | disposition home or self-care (01) ==
LOC: ED 19:14
PROVIDERS: Emergency Provider Emergency Medicine; PCP Nurse Practitioner
DX: S91.051A Open bite, right ankle, initial encounter (principal); L03.115 Cellulitis of right lower limb; Z94.0 Kidney transplant status; Z94.4 Liver transplant status; W55.01XA Bitten by cat, initial encounter; Y93.89 Activity, other specified; Y92.009 Unspecified place in unspecified non-institutional (private) residence as the place of occurrence of the external cause; Y99.8 Other external cause status
CPT/HCPCS: 90471; 90715; 99283

== ENCOUNTER → 2021-03-21 10:06 | Outpatient (CLI) | payer MEDICARE, OTHER, SELFPAY ==
--- NOTE | 2021-03-21 10:09 | BI_ITS ---
MAMMOGRAPHY - BILATERAL SCREENING 3-D TOMOSYNTHESIS REASON FOR EXAM: Female, 51 years old. Routine screening PERTINENT HISTORY: No significant family history. TECHNIQUE: 2-D mammograms and 3-D Tomosynthesis of the breast (s) were performed. CAD was performed. COMPARISON: 03/16/2020 FINDINGS: The breast composition is composed of scattered fibroglandular density. Scattered benign calcifications are seen. No dense spiculated masses or suspicious microcalcifications are identified. No architectural distortion is identified. There is no skin thickening or retraction. There has been no significant change since the prior study. BI/SCRN MAMM (CAD)W/DALIA BILAT IMPRESSION: No mammographic signs of malignancy. Routine yearly mammograms recommended. ASSESSMENT CATEGORY: BIRADS Category 1: Negative. A letter regarding these results will be sent to the patient by the facility within 30 days. FOLLOW UP RECOMMENDATION: Yearly follow up mammogram recommended. (A) Approximately 10% of breast cancers are not detected by mammography. A normal mammogram should not delay biopsy of a clinically suspicious abnormality. Electronically Signed: Victor Hugo Hunter MD at 11:22 EDT , Service support ,
== END ==
PROVIDERS: PCP Nurse Practitioner; Referring Provider Student in an Organized Health Care Education/Training Program; Visit Provider Student in an Organized Health Care Education/Training Program
DX: Z12.31 Encounter for screening mammogram for malignant neoplasm of breast (principal)
CPT/HCPCS: 77063; 77067

== ENCOUNTER → 2022-05-01 | Outpatient (CLI) | payer MEDICARE, OTHER, SELFPAY ==
--- NOTE | 2022-05-01 12:17 | BI_ITS ---
MAMMOGRAPHY - BILATERAL SCREENING REASON FOR EXAM: Female, 52 years old. Routine annual screening examination. PERTINENT HISTORY: Aunt with breast cancer. TECHNIQUE: Digital bilateral breast dalia (3D mammographic acquisition) in the CC and MLO projections. 2-D mediolateral oblique (MLO) and craniocaudad (CC) views of both breasts were obtained. CAD: Full Field Digital Mammography with Computer Added Detection was performed. COMPARISON: Comparison is made with prior study of 03/21/2021 and 03/16/2020. FINDINGS: Breast Composition: There are scattered areas of fibroglandular density. There are no dominant masses or suspicious calcifications. No other significant abnormalities are identified. There has been no significant change since the prior study. BI/SCRN MAMM (CAD)W/DALIA BILAT IMPRESSION: Stable bilateral screening mammogram. Yearly follow-up mammogram recommended. (A) ASSESSMENT CATEGORY: BIRADS Category 1: Negative. A letter regarding these results will be sent to the patient by the facility within 30 days. Approximately 10% of breast cancers are not detected by mammography. A normal mammogram should not delay biopsy of a clinically suspicious abnormality. [id number] Electronically Signed: Rajeev Cortez MD at 14:03 EDT ,
== END | disposition home or self-care (01) ==
LOC: OPBI 12:15
PROVIDERS: PCP Nurse Practitioner Family; Visit Provider Obstetrics & Gynecology
DX: Z12.31 Encounter for screening mammogram for malignant neoplasm of breast (principal)
CPT/HCPCS: 77063; 77067

== ENCOUNTER 2022-09-11 06:43 | Day surgery (SDC) | payer MEDICARE, OTHER, SELFPAY ==
[2022-09-11] VITALS (7 sets, daily range): BP systolic 117–133; BP diastolic 78–91; PULSE 66–88; RESP 16–18; TEMP 36.3–36.5; O2SAT 97–100; BMI 25.4
--- NOTE | 2022-09-11 | COLBX_PTH ---
PATIENT: NEAL BARBOUR LOC: EN U#:[id number] AGE/SX: 52/F ROOM: RE09/11/[address]: Dr. Jazmin Ramires MD : 1970 BED: DIS: 09/11/2022 SPEC #: [id number] RECD: 09/11/22 12:53 STATUS: NATE RECarlos A #: [id number] JOSÉ LUIS: 09/11/22 00:[address]: Jazmin Ramires DEPT: SURGICAL PATHOLOGY RECD BY: Jacinto Tovar ENTERED: 09/11/22 12:58 SP TYPE: COLON BX OTHR DR: Simin Kratf, CARD FEEDER-C Tissues: A - Ileum, NOS B - Ascending colon Procedures: Surgery Specimen Level IV HEADER OPERATION: Colonoscopy with biopsy and polypectomy ? open access (MAC) PRE-OP DIAGNOSIS: Screening TISSUE SUBMITTED: A ? Ileocecal valve biopsy, B ? Ascending colon polyp MICROSCOPIC DIAGNOSIS A. Ileocecal valve, biopsy: Minimal changes consistent with tubular adenoma. B. Ascending colon polyp, polypectomy: Tubular adenoma. SJ:maciel 09/12/2022 MICROSCOPIC DESCRIPTION Slides are reviewed. GROSS DESCRIPTION A - Received in fixative is one container labeled with the patient's name and designated ileocecal valve biopsy. The specimen consists of two irregular fragments of light bond soft tissue that in aggregate measure 0.3 x 0.2 x 0.1 cm. The specimen is totally submitted in one cassette. B - Received in fixative is one container labeled with the patient's name and designated ascending colon. The specimen consists of two irregular fragments of light bond soft tissue that in aggregate measure 0.5 x 0.3 x 0.1 cm. The specimen is totally submitted in one cassette. / AM:maciel 09/11/2022 TC:5 CPT: 48652 x2
[2022-09-11] MEDS: Lactated Ringers 1,000 ML 15 ML IV (07:25)
--- NOTE | 2022-09-11 07:25 | H&P.OPEN ---
[facility] - General General Date of Admission: 09/11/22 HPI Narrative NEAL BARBOUR, is a 52 F who presents for screening colonoscopy. Patient never had previous colonoscopy. Patient denies any family history of Colon cancer. Patient has bowel movements every 2 to 3 days denies any blood. Patient did have past medical history for liver and kidney transplant 2006?patient is currently doing well from that aspect. [facility] Medical History (Updated 09/11/22 @ 07:[address] Jazmin Ramires MD) Hemorrhoids History of cirrhosis of liver History of echocardiogram History of steroid therapy Migraine Non-smoker Post-menopausal Home Medications biotin 800 mcg tablet 1,000 mcg PO DAILY 03/07/14 [History Last Taken Unknown] fexofenadine 60 mg-pseudoephedrine ER 120 mg tablet,ext.release,12 hr 180 mg PO DAILY PRN Allergies 03/07/14 [History Last Taken Unknown] mycophenolate mofetil 250 mg capsule 250 mg PO BID 03/07/14 [History Last Taken Unknown] erenumab-aooe 70 mg/mL subcutaneous auto-injector ([employer]ig Autoinjector 140 mg/2 Pack () 140 mg subcut QMONTH 10/14/18 [History Last Taken Unknown] prednisone 1 mg tablet 2 mg PO QMWF 10/14/18 [History Last Taken Unknown] tacrolimus 1 mg capsule, immediate-release (Prograf) 3 mg PO BID 10/14/18 [History Last Taken Unknown] Allergy/AdvReac Type Severity Reaction Status Date / Time amoxicillin trihydrate Allergy Unknown Verified 09/11/22 07:11 [From Augmentin] codeine Allergy Rash Verified 09/11/22 07:11 potassium clavulanate Allergy Unknown Verified 09/11/22 07:11 [From Augmentin] Family History Grandmother Diabetes Heart disease Skin cancer Mother Hypertension Surgical History (Updated 09/06/22 @ 12:24 by Kathrine Caballero) history left kidney transplant (~2006) History of laparoscopic cholecystectomy History of liver transplant (~2006) History of nasal surgery History of open heart surgery (~1976) History of tonsillectomy History of tubal ligation Social History Smoking Status: Never smoker alcohol intake: current substance use type: does not use Past Medical/Surgical History Planned Operation Planned Operative Procedure/s: CSCOPE Previous Hospitalizations/Surgeries HX Hospitalizations: No Any Problems With Anesthesia: No You/Your Family Experience Fever (Hyperthermia) With Anes: No Cholinesterase deficiency: No Cardiovascular Hx of Irregular Heartbeat and/or Afib: No Hx Heart Attack: No Hx Congestive Heart Failure: No Hx Rheumatic Fever: No Hx Hypertension: No Hx Internal Defibrillator: No Hx Pacemaker: No Hx Pain in Legs when Walking/Leg Cramps: No Respiratory HX of Shortness of Breath: No Hx Chronic Obstructive Pulmonary Disease (COPD): No Hx Asthma: No Hx Emphysema: No Hx Sleep Apnea: No Hx Respiratory Tract Infection/Cold (presently): No Do You Snore Loudly (louder than talking or can be heard): Yes Do You Often Feel Tired/ Fatigued/ Sleepy Dring Daytime?: No Has Anyone Observed You Stop Breathing During Sleep?: No Result (for STOP score): Negative Smoking Status: Never smoker Gastrointestinal Hx Gastroesophageal Reflux: No Hx Gastrointestinal Bleed: No Hx Ulcer: No Special diet followed at home: No Neurological Hx Seizures: No Hx Multiple Sclerosis: No Hx Parkinson's Disease: No Hx Head/Neck Injury: No Hx Headaches: Yes Hx Back Injury/Pain: No Does patient have nerve stimulator: No Blood Disorder Hx Hepatitis: No Hx Cirrhosis: Yes Hx Anemia: No Reproduction : No Is Patient Lactating: No Genitourinary Hx Renal Disease: Yes Hx Dialysis: No Musculoskeletal Hx Arthritis: No Hx Gout: No Endocrine Hx Diabetes: No Thyroid Disease: No Psycho/Social Hx Anxiety: No Hx Depression: No Hx Dementia: No Miscellaneous Hx Cancer: No Recent Exposure to Contagious Disease: No Allergies amoxicillin trihydrate [From Augmentin] Allergy (Verified 09/11/22 07:11) Unknown codeine Allergy (Verified 09/11/22 07:11) Rash potassium clavulanate [From Augmentin] Allergy (Verified 09/11/22 07:11) Unknown Discharge Is Pt Admitted From a [facility], or a Snf: No After D/C, Where Do you Plan to Go: Return Home Vital Signs Vital Signs Vital Signs: 09/11/22 07:12 09/11/22 07:13 Temperature 97.7 F L Temperature Source Temporal Pulse Rate 72 Respiratory Rate 18 Respiratory Pattern Normal Blood Pressure 126/78 H Blood Pressure Mean 94 Blood Pressure Source Monitor Blood Pressure Position Semi-Fowlers Blood Pressure Location Left Arm Pulse Ox 100 Oxygen Delivery Method Room Air Weight Weight: 153 lb Body Mass Index (BMI) 25.4 Physical Exam Const alert, oriented x3 and no apparent distress HEENT normocephalic and head/scalp atraumatic Resp normal respiratory effort Cardio regular rate GI soft to palpation and non-tender; Negative for non-distended Palpation: Negative for guarding Extremity no clubbing, cyanosis or edema Neuro CN's II-XII intact bilaterally Psych mental status grossly normal Assessment & Plan Assessment/Plan (1) Encounter for screening for malignant neoplasm of colon: (2) History of cirrhosis of liver: Surgery Risks - Colonoscopy Risks Include but are not Limited To: Risks include but are not limited to: Bleeding, perforation requiring further surgery, inability to complete colonoscopy requiring barium enema.
--- NOTE | 2022-09-11 09:07 | OP.COLON_ITS ---
Patient Name: Stephy Manrique Procedure Date: 09/11/2022 8:15 AM Date of : 1970 Age: 52 Procedure: Colonoscopy Indications: Screening for colorectal malignant neoplasm Providers: Jazmin Ramires MD Medicines: Monitored Anesthesia Care Patient Profile: This is a 52 year old female. Last Colonoscopy: none. The patient's first colonoscopy is today. Complications: No immediate complications. Procedure: Pre-Anesthesia Assessment: - Prior to the procedure, a History and Physical was performed, and patient medications and allergies were reviewed. The patient's tolerance of previous anesthesia was also reviewed. The risks and benefits of the procedure and the sedation options and risks were discussed with the patient. All questions were answered, and informed consent was obtained. Prior Anticoagulants: The patient has taken no previous anticoagulant or antiplatelet agents. ASA Grade Assessment: Per anesthesia. After reviewing the risks and benefits, the patient was deemed in satisfactory condition to undergo the procedure. After I obtained informed consent, the scope was passed under direct vision. Throughout the procedure, the patient's blood pressure, pulse, and oxygen saturations were monitored continuously. The pediatric colonoscope was introduced through the anus and advanced to the cecum, identified by the appendiceal orifice, ileocecal valve and palpation. The colonoscopy was technically difficult and complex due to a tortuous colon. Successful completion of the procedure was aided by applying abdominal pressure. Scope In: 8:19:45 AM Scope Withdrawal Time 0 hours 15 minutes 16 seconds Scope Out: 8:57:51 AM Total Procedure Duration Time 0 hours 38 minutes 6 seconds Findings: Hemorrhoids were found on perianal exam. Non-bleeding external and internal hemorrhoids were found. The hemorrhoids were Grade I (internal hemorrhoids that do not prolapse). Four sessile polyps were found in the ascending colon and ileocecal valve. The polyps were less than 5 mm in size. These polyps were removed with a cold biopsy forceps. Resection and retrieval were complete. The exam was otherwise without abnormality. Impression: - Hemorrhoids found on perianal exam. - Non-bleeding external and internal hemorrhoids. - Four less than 5 mm polyps in the ascending colon and at the ileocecal valve, removed with a cold biopsy forceps. Resected and retrieved. - The examination was otherwise normal. Recommendation: - Discharge patient to home. - Resume previous diet. - Continue present medications. - Await pathology results. - Repeat colonoscopy in 3 - 5 years for surveillance based on pathology results. Procedure Code(s): --- Professional --- 66914, PT, Colonoscopy, flexible; with biopsy, single or multiple Diagnosis Code(s): --- Professional --- Z12.11, Encounter for screening for malignant neoplasm of colon K64.0, First degree hemorrhoids D12.2, Benign neoplasm of ascending colon D12.0, Benign neoplasm of cecum CPT copyright 2017 [employer]. All rights reserved. The codes documented in this report are preliminary and upon medical research assistant review may be revised to meet current compliance requirements. MD Jazmin Tom MD 09/11/2022 9:07:21 AM This report has been signed electronically. Number of Addenda: 0 Note Initiated On: 09/11/2022 8:15 AM
--- NOTE | 2022-09-11 09:08 | OP.CCLET_ITS ---
09/11/2022 Henrique Gallardo Re : Colonoscopy procedure for Stephy Manrique Dear Swapnil This procedure was performed on Sunday, September 11, 2022. My impressions and recommendations are as follows: Impressions : - Hemorrhoids found on perianal exam. - Non-bleeding external and internal hemorrhoids. - Four less than 5 mm polyps in the ascending colon and at the ileocecal valve, removed with a cold biopsy forceps. Resected and retrieved. - The examination was otherwise normal. Recommendations : - Discharge patient to home. - Resume previous diet. - Continue present medications. - Await pathology results. - Repeat colonoscopy in 3 - 5 years for surveillance based on pathology results. My findings are described in the full procedure note, which is enclosed. If I can be of further assistance, please feel free to contact me at Doctor phone number(s): , Work: . Sincerely, MD Jazmin Tom MD 09/11/2022 9:07:21 AM This report has been signed electronically.
== END 2022-09-11 09:55 | disposition home or self-care (01) ==
LOC: EN 06:44 → AC 06:45
PROVIDERS: PCP Nurse Practitioner Family; Referring Provider Nurse Practitioner Family; Visit Provider Surgery
PROC: 0DJD8ZZ Inspection of Lower Intestinal Tract, Via Natural or Artificial Opening Endoscopic (ICD-10-PCS; CPT 45378; principal; 2022-09-11 08:10)
DX: Z12.11 Encounter for screening for malignant neoplasm of colon (principal); Z94.4 Liver transplant status; D12.2 Benign neoplasm of ascending colon; D12.0 Benign neoplasm of cecum; K64.0 First degree hemorrhoids; Z94.0 Kidney transplant status; Z92.241 Personal history of systemic steroid therapy; Z78.0 Asymptomatic menopausal state; G43.909 Migraine, unspecified, not intractable, without status migrainosus
CPT/HCPCS: 45380; 88305; J7120; J2405

== ENCOUNTER → 2023-05-02 | Outpatient (CLI) | payer MEDICARE, OTHER, SELFPAY ==
--- NOTE | 2023-05-02 09:48 | BI_ITS ---
MAMMOGRAPHY - BILATERAL SCREENING REASON FOR EXAM: Female, 53 years old. Routine annual screening examination. PERTINENT HISTORY: Aunt with breast cancer. TECHNIQUE: Digital bilateral breast dalia (3D mammographic acquisition) in the CC and MLO projections. 2-D mediolateral oblique (MLO) and craniocaudad (CC) views of both breasts were obtained. CAD: Full Field Digital Mammography with Computer Added Detection was performed. COMPARISON: Comparison is made with prior study dated May 01, 2022 and March 21, 2012. FINDINGS: Breast Composition: The breasts are heterogeneously dense, which may obscure small masses. There are no dominant masses or suspicious calcifications. No other significant abnormalities are identified. There has been no significant change since the prior study. BI/SCRN MAMM (CAD)W/DALIA BILAT IMPRESSION: Stable bilateral screening mammogram. Yearly follow-up mammogram recommended. (A) ASSESSMENT CATEGORY: BIRADS Category 1: Negative. A letter regarding these results will be sent to the patient by the facility within 30 days. Approximately 10% of breast cancers are not detected by mammography. A normal mammogram should not delay biopsy of a clinically suspicious abnormality. [id number] Electronically Signed: Rajeev Cortez MD at 11:01 EDT ,
== END | disposition home or self-care (01) ==
LOC: OPBI 09:46
PROVIDERS: PCP Nurse Practitioner Family; Referring Provider Nurse Practitioner Family; Visit Provider Nurse Practitioner Family
DX: Z12.31 Encounter for screening mammogram for malignant neoplasm of breast (principal)
CPT/HCPCS: 77063; 77067

== ENCOUNTER → 2024-05-05 | Outpatient (CLI) | payer MEDICARE, OTHER, SELFPAY ==
--- NOTE | 2024-05-05 09:38 | BI_ITS ---
MAMMOGRAPHY - BILATERAL SCREENING 3-D TOMOSYNTHESIS REASON FOR EXAM: Female, 54 years old. Screening PERTINENT HISTORY: No significant family history. TECHNIQUE: 2-D mammograms and 3-D Tomosynthesis of the breast (s) were performed. CAD was performed. COMPARISON: 05/02/2023 FINDINGS: The breast composition is composed of scattered fibroglandular density. Scattered benign calcifications are seen. No dense spiculated masses or suspicious microcalcifications are identified. No architectural distortion is identified. There is no skin thickening or retraction. There has been no significant change since the prior study. BI/SCRN MAMM (CAD)W/DALIA BILAT IMPRESSION: No mammographic signs of malignancy. Routine yearly mammograms recommended. ASSESSMENT CATEGORY: BIRADS Category 1: Negative. A letter regarding these results will be sent to the patient by the facility within 30 days. FOLLOW UP RECOMMENDATION: Yearly follow up mammogram recommended. (A) Approximately 10% of breast cancers are not detected by mammography. A normal mammogram should not delay biopsy of a clinically suspicious abnormality. Electronically Signed: Yao Kenyon MD at 10:54 EDT ,
== END | disposition home or self-care (01) ==
LOC: OPBI 09:36
PROVIDERS: PCP Nurse Practitioner Family; Referring Provider Nurse Practitioner Family; Visit Provider Nurse Practitioner Family
DX: Z12.31 Encounter for screening mammogram for malignant neoplasm of breast (principal)
CPT/HCPCS: 77063; 77067

== ENCOUNTER → 2024-10-16 | Outpatient (CLI) | payer MEDICARE, OTHER, SELFPAY ==
--- NOTE | 2024-10-16 10:19 | BD_ITS ---
STUDY: DUAL ENERGY X-RAY ABSORPTIOMETRY / DXA REASON FOR EXAM: Female, 54 years old. [id number] -- Post Menopausal TECHNIQUE: Bone Mineral Density (BMD) measurements of lumbar spine and bilateral hips were obtained. COMPARISON: Comparison is made with prior study dated October 15, 2014. FINDINGS: Lumbar Spine (L1-L4): g/cm2 (1.047) / T-score (0.0) / Z-score (1.0) Findings are suggestive of normal bone density with a low fracture risk. Left Femur Total: g/cm2 (0.763) / T-score (-1.5) / Z-score (-0.8) Left Femoral Neck: g/cm2 (0.699) / T-score (-1.4) / Z-score (-0.3) Right Femur Total: g/cm2 (0.775) / T-score (-1.4) / Z-score (-0.7) Right Femoral Neck: g/cm2 (0.670) / T-score (-1.6) / Z-score (0.6) The T-Scores on the most recent prior examination were: Lumbar Spine (L1-L4): There has been worsening of bone density since the previous examination. Left Femur Total: which represents a worsening of 12.2%. Right Femur Total: which represents a worsening of 11.2%. BD/Dexa Bone Density Study IMPRESSION: The patient is considered osteopenic as outlined below according to World Carlos Organization (WHO) criteria with a moderate fracture risk. There has been worsening of bone density since the previous examination. Reference Information: The T-score is the number of standard deviations above or below the standard which is normal for young adults at their peak bone mineral density. The World Health Organization (WHO) interprets the T-scores as follows: Above -1 Normal bone density Between -1 and -2.5 Osteopenia Equal to / or below -2.5 Osteoporosis As a practical clinical guideline, osteopenia may be graded as follows: Mild -1 through -1.5 Moderate -1.6 through -2.0 Severe -2.1 through -2.4 The Z-score is the number of standard deviations above or below age-matched controls. A Z-score of less than -1.5 would be considered abnormal. References: 1. NIH Osteoporosis and Related Bone Diseases www osteo.org 2. International Society for Clinical Densitometry www iscd.org 3. National Osteoporosis Foundation www nof.org Electronically Signed: Rajeev Cortez MD at 10:13 EST ,
== END | disposition home or self-care (01) ==
LOC: OPBD 10:17
PROVIDERS: PCP Nurse Practitioner Family; Referring Provider Nurse Practitioner Family; Visit Provider Nurse Practitioner Family
DX: Z78.0 Asymptomatic menopausal state (principal)
CPT/HCPCS: 77080

== ENCOUNTER → 2025-06-12 | Outpatient (CLI) | payer MEDICARE, OTHER, SELFPAY ==
--- NOTE | 2025-06-12 14:07 | BI_ITS ---
EXAM: SCRN MAMM (CAD)W/DALIA BILAT DATE: 06/12/2025 CLINICAL HISTORY: F, Age 55 y/o , SCREEN TECHNIQUE: SCRN MAMM (CAD)W/DALIA BILAT. No family history. COMPARISON: Prior exam(s) dated prior study dated May 05, 2024.. FINDINGS: TISSUE DENSITY: There are scattered areas of fibroglandular density. Bilateral Breast Mammographic Findings: No significant masses, calcifications or other abnormalities are identified. No suspicious masses, areas of developing architectural distortion, or suspicious calcifications. There has been no significant interval change. BI/SCRN MAMM (CAD)W/DALIA BILAT IMPRESSION: Stable examination. OVERALL FINAL ASSESSMENT BI-RADS 1: NEGATIVE. RECOMMENDATION: Routine annual follow-up in 1 Year A letter with findings and recommendations will be mailed to the patient. Reading Location: [id number]
== END | disposition home or self-care (01) ==
LOC: OPBI 14:05
PROVIDERS: PCP Nurse Practitioner Family; Referring Provider Nurse Practitioner Family; Visit Provider Nurse Practitioner Family
DX: Z12.31 Encounter for screening mammogram for malignant neoplasm of breast (principal)
CPT/HCPCS: 77063; 77067